=== PATIENT | female | born 1980 | race Caucasian/White ===

== ENCOUNTER 2018-07-28 12:45 | Inpatient (IN) | payer MEDICAID, OTHER ==
[~2018-07-28] VITALS: Ht 160 cm; Wt 54.9 kg
[2018-07-28] MEDS ORDERED: ONDANSETRON 4 MG TAB.RAPDIS ONE (13:29)
[2018-07-28] MEDS ORDERED: ACETAMINOPHEN ES 500 MG TABLET ONE (13:29)
[2018-07-28] MEDS ORDERED: ONDANSETRON HCL/PF 4 MG/2 ML VIAL IV ONE (13:30)
[2018-07-28] MEDS ORDERED: IV NS 0.9% 1,000 ML BAG IV ONE (13:30)
[2018-07-28] MEDS ORDERED: ACETAMINOPHEN ES 500 MG TABLET PO ONE (13:30)
--- NOTE | 2018-07-28 13:30 | NUR ---
BB FAMILY FOR FEVER NOTED TODAY. 1ST CHEMO LAST WEEK FOR BREAST CA. 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 SEEN BY MD FOR EVAL. PT AAOX4. SAFETY AND COMFORT MEASURES PROVIDED. WILL MONITOR.
--- NOTE | 2018-07-28 13:50 | NUR ---
IV ACCESS STARTED. MEDICATED ORDERED.
[2018-07-28 13:59] LABS: CALCIUM, SERUM 9.2 mg/dL (8.5-10.1); CARBON DIOXIDE 23 mmol/L (21-32); CHLORIDE 102 mmol/L (98-107); CREATININE 0.8 mg/dL (0.6-1.3); GLUCOSE 125 mg/dL (74-106); SODIUM SERUM 134 mmol/L (136-145); UREA NITROGEN, BLOOD 9 mg/dL (7-18)
--- NOTE | 2018-07-28 14:00 | NUR ---
CALLED LAB FOR FLU SWAB THEY SAID THEY WILL BRING IT.
[2018-07-28 14:03] LABS: INR 0.99 (0.85-1.15)
[2018-07-28 14:10] LABS: ALANINE AMINOTRANSFERASE 23 U/L (12-78); ALBUMIN 3.7 g/dL (3.4-5.0); ALKALINE PHOSPHATASE 52 U/L (46-116); ASPARTATE AMINOTRANSFERASE 16 U/L (15-37); BILIRUBIN,DIRECT 0.2 mg/dL (0.0-0.2); BILIRUBIN,TOTAL 0.5 mg/dL (0.2-1.0); EOSINOPHILS % (AUTO) 0.9 % (0.0-6.0); HEMATOCRIT 41 % (33-45); HEMOGLOBIN 13.8 g/dL (11.5-14.8); LYMPHOCYTES # (AUTO) 0.1 /CMM (0.8-4.8); LYMPHOCYTES % (AUTO) 25.4 % (20.0-44.0); MEAN CORPUSCULAR HEMOGLOBIN 29 PG (26.0-33.0); MEAN CORPUSCULAR HGB CONC 34 g/dl (31.0-36.0); MEAN CORPUSCULAR VOLUME 87 fL (82-100); MONOCYTES # (AUTO) 0.1 /CMM (0.1-1.30); MONOCYTES % (AUTO) 27.5 % (2.0-12.0); NEUTROPHILS # (AUTO) 0.2 /CMM (1.8-8.9); NEUTROPHILS % (AUTO) 46.2 % (43.0-81.0); PLATELET COUNT (AUTO) 149 /CMM (150-450); RDW COEFFICIENT OF VARIATION 12.8 (11.5-15.0); RED BLOOD CELL COUNT(AUTO) 4.72 MIL/uL (4.0-5.2); TOTAL PROTEIN, SERUM 7.3 g/dL (6.4-8.2); TROPONIN I < 0.017 ng/mL (0.00-0.056)
[2018-07-28 14:14] LABS: WHITE BLOOD COUNT (AUTO) 0.3 K/uL (4.3-11.0)
--- NOTE | 2018-07-28 14:20 | NUR ---
NOTIFIED CHET FROM LAB FOR FLU SWABS.
[2018-07-28] MEDS ORDERED: CEFEPIME 1 GM in IV D5W 50 ML IV ONE (14:30)
[2018-07-28] MEDS ORDERED: FILGRASTIM (300 MCG) 300 MCG/ML VIAL SQ STA (14:32)
--- NOTE | 2018-07-28 14:34 | NUR ---
PAGED EPIC FOR PANEL
[2018-07-28] MEDS ORDERED: ONDA4TAB8 PO (15:15)
[2018-07-28] MEDS ORDERED: TBO-FILGRASTIM 300 MCG/0.5 ML SYRINGE SQ ONE (15:30)
[2018-07-28 16:16] LABS: BILIRUBIN,URINE Negative (NEGATIVE); BLOOD, URINE Negative Ery/uL (NEGATIVE); COLOR,URINE Yellow (YELLOW); KETONES,URINE 40 (NEGATIVE); LEUKOCYTE ESTERASE ,URINE Small (NEGATIVE); NITRITE, URINE Negative (NEGATIVE); PH,URINE 5.5 (5.0-8.0); PROTEIN,URINE 30 mg/dl (NEGATIVE); UGLUCOSE Negative (NEGATIVE); UROBILINOGEN,URINE 0.2 EU/dL (0.2)
[2018-07-28 16:17] LABS: APPEARANCE,URINE SLIGHTLY HAZY (CLEAR)
[2018-07-28 16:22] LABS: BACTERIA,URINE Few /HPF (None Seen); RBC,URINE 0-2 /HPF (0-2); SQUAMOUS EPITHELIAL CELL,UR Many /HPF (None Seen)
[2018-07-28] MEDS ORDERED: MAG HYDROX/AL HYDROX/SIMETH 30 ML UDC PO PRN (16:30)
[2018-07-28] MEDS ORDERED: Z GUARD REMEDY 2 OZ OINT TP PRN (16:30)
[2018-07-28] MEDS ORDERED: MAGNESIUM HYDROXIDE 30 ML UDC PO PRN (16:30)
[2018-07-28] MEDS ORDERED: HYDROCODONE/APAP 5/325MG 1 EACH TABLET PO PRN (16:30)
--- NOTE | 2018-07-28 16:30 | NUR ---
REPORT GIVEN TO REBECA COTTER FOR TELE.
[2018-07-28] MEDS ORDERED: NYSTATIN (PYXIS) 500,000 UNIT/5 ML ORAL.SUSP PO SCH (17:00)
[2018-07-28 17:15] VITALS: BP 103/53
--- NOTE | 2018-07-28 17:15 | NUR ---
MS OIL SPRAYING MACHINE OPERATOR NOTES: PT ADMITTED FROM ER VIA WHEELCHAIR WITH A DIAGNOSIS OF NEUTROPENIC FEVER. PT IS ALERT, ORIENTED X4. ABLE TO MAKE NEEDS KNOWN. PT IS AMBULATORY. NO APPARENT DISTRESS NOTED. DENIES PAIN AND DISCOMFORT AT THIS TIME. PT ON ROOM AIR, SATURATING WELL. VITAL SIGNS WNL. IV ON RIGHT ANTECUBITAL #20, INTACT AND PATENT, FLUSHING WELL. PERTINENT ASSESSMENTS DONE. PT HAS A SCAB ON HER LEFT FOREARM, PICTURE TAKEN AND PLACED ON CHART. BELONGINGS LIST SIGNED BY PT. WILL CONTINUE TO MONITOR PT.
[2018-07-28] MEDS: IV NS 0.9% 1,000 ML IV PRN (17:18)
[2018-07-28] MEDS ORDERED: FEE PK DOSING 1 MIN EA MC ONE (18:16)
[2018-07-28] MEDS: PIPERACILLIN /TAZOBACTAM 3.375 G in IV D5W 50 ML IV SCH ×2 (18:31→23:28)
--- NOTE | 2018-07-28 19:00 | NUR ---
MS RN NOTES: PT HAD 3 EPISODES OF LOOSE WATERY STOOL, STOOL COLLECTED AND SENT TO LAB.
--- NOTE | 2018-07-28 19:36 | NUR ---
MS RN NOTES: PT LYING ON BED ALERT AND AWAKE. NO ACUTE DISTRESS NOTED. NO COMPLAINTS OF PAIN OR DISCOMFORT. BREATHING EVEN AND UNLABORED WITH NORMAL RESPIRATIONS. IV ON RIGHT ANTECUBITAL #20 INTACT AND PATENT WITH IVF NS RUNNING AT 100ML/HR, INFUSING WELL. KEPT CLEAN, DRY AND COMFORTABLE. CALL LIGHT PLACED WITHIN REACH. SAFETY AND FALL PRECAUTIONS OBSERVED AND MAINTAINED. WILL ENDORSE TO DEMENTIA PROGRAM DIRECTOR FOR CONTINUITY OF CARE.
[2018-07-28 20:00] VITALS: BP 100/59
[2018-07-28] MEDS: ACETAMINOPHEN 325 MG TABLET PO PRN (20:03)
[2018-07-28] MEDS: VANCOMYCIN 500 MG in IV D5W 100 ML IV SCH (20:12)
[2018-07-28] MEDS ORDERED: LOPERAMIDE HCL (2 MG CAP) 2 MG CAPSULE PO PRN (22:00)
[2018-07-28 22:29] LABS: OCCULT BLOOD STOOL POSITIVE (NEGATIVE)
[2018-07-28] MEDS ORDERED: LOPERAMIDE HCL UDC(2 MG/10 ML) 2 MG/10 ML UDC ONE (22:39)
[2018-07-28] MEDS: LOPERAMIDE HCL UDC(2 MG/10 ML) 2 MG/10 ML UDC PO PRN (23:08)
[2018-07-28] MEDS: ONDANSETRON HCL/PF 4 MG/2 ML VIAL IVP PRN (23:10)
[2018-07-28] MEDS: NYSTATIN (PYXIS) 500,000 UNIT/5 ML ORAL.SUSP PO SCH (23:28)
--- NOTE | 2018-07-29 01:01 | NUR ---
RN NOTE IMODIUM IS NOT AVAILABLE IN [facility], CALLED DR HERNANDEZ AND CHANGED IT TO SUSPENSION FORM PER MD ORDER PATIENT REQUESTED [facility]. FOUR TIMES A DAY DUE TO THROAT DISCOMFORT, CALLED DOCTOR HERNANDEZ AND CHANGED MEDICATION TO 4 TIMES A DAY PER MD ORDER
[2018-07-29 04:00] VITALS: BP 103/65
[2018-07-29] MEDS: VANCOMYCIN 500 MG in IV D5W 100 ML IV SCH ×2 (04:28→13:33)
[2018-07-29] MEDS: ACETAMINOPHEN 325 MG TABLET PO PRN ×2 (04:46→21:32)
[2018-07-29] MEDS: LOPERAMIDE HCL UDC(2 MG/10 ML) 2 MG/10 ML UDC PO PRN (04:46)
[2018-07-29] MEDS: PIPERACILLIN /TAZOBACTAM 3.375 G in IV D5W 50 ML IV SCH ×3 (05:10→19:16)
[2018-07-29] MEDS: ONDANSETRON HCL/PF 4 MG/2 ML VIAL IVP PRN ×3 (05:47→21:33)
[2018-07-29 06:21] LABS: BASOPHILS % (AUTO) 0.6 % (0.0-2.0); EOSINOPHILS % (AUTO) 0.5 % (0.0-6.0); HEMATOCRIT 39 % (33-45); HEMOGLOBIN 13.2 g/dL (11.5-14.8); LYMPHOCYTES # (AUTO) 0.2 /CMM (0.8-4.8); LYMPHOCYTES % (AUTO) 23.6 % (20.0-44.0); MEAN CORPUSCULAR HEMOGLOBIN 29 PG (26.0-33.0); MEAN CORPUSCULAR HGB CONC 34 g/dl (31.0-36.0); MEAN CORPUSCULAR VOLUME 87 fL (82-100); MONOCYTES # (AUTO) 0.3 /CMM (0.1-1.30); MONOCYTES % (AUTO) 37.3 % (2.0-12.0); NEUTROPHILS # (AUTO) 0.4 /CMM (1.8-8.9); PLATELET COUNT (AUTO) 164 /CMM (150-450); RDW COEFFICIENT OF VARIATION 12.7 (11.5-15.0); RED BLOOD CELL COUNT(AUTO) 4.54 MIL/uL (4.0-5.2)
[2018-07-29 06:27] LABS: CALCIUM, SERUM 8.3 mg/dL (8.5-10.1); MAGNESIUM 1.4 mg/dL (1.8-2.4); POTASSIUM 3.4 mmol/L (3.5-5.1)
--- NOTE | 2018-07-29 06:57 | NUR ---
RN NOTE PATIENT RESTED WELL AT NIGHT, NO PAIN OR FEVER AT THIS MOMENT, NO DISTRESS NOTED, IS BY BEDSIDE, ALL SAFETY MEASURES TAKEN, WILL ENDORSE TO AM SHIFT TO CONTINUE CARE
[2018-07-29 07:10] LABS: THYROID STIMULATING HORMONE 0.674 uIU/mL (0.358-3.74)
[2018-07-29 07:12] LABS: WHITE BLOOD COUNT (AUTO) 0.9 K/uL (4.3-11.0)
--- NOTE | 2018-07-29 07:30 | NUR ---
MIXER AND BLENDER INITIAL NOTES RECEIVED PATIENT IN BED AOX3, WITH WEAKNESS, ON NEUTROPENIC REVERSE ISOLATION, OBSERVED, NO DISTRESS, AMBULATORY, FAMILY AT BEDSIDE, IV R AC 20G NS @ 100 ML/HR, AFEBRILE AT THIS TIME, BED IN LOW AND LOCKED POSITION CALL LIGHT WITHIN REACH, WILL CONTINUE TO MONITOR.
[2018-07-29 08:00] VITALS: BP 99/65
[2018-07-29] MEDS: PANTOPRAZOLE 40 MG TABLET.DR PO SCH (08:31)
[2018-07-29] MEDS: NYSTATIN (PYXIS) 500,000 UNIT/5 ML ORAL.SUSP PO SCH ×4 (08:31→21:33)
[2018-07-29 09:43] LABS: BAND % (MANUAL) 1 % (0.0-5.0); LYMPHOCYTES % (MANUAL) 28 % (16-48); MONOCYTES % (MANUAL) 36 % (0-11.0); NEUTROPHILS % (MANUAL) 35 (42-76)
[2018-07-29] MEDS ORDERED: POTASSIUM CHLORIDE 20 MEQ TAB.PRT.SR PO SCH (10:00)
[2018-07-29] MEDS ORDERED: POTASSIUM CHLORIDE 20 MEQ TAB.PRT.SR PO ONE (10:15)
[2018-07-29] MEDS: Magnesium 1GM/D5W 100ML PREMIX 100 ML IV SCH ×3 (10:39→12:34)
[2018-07-29] MEDS: IV NS 0.9% 1,000 ML IV PRN (15:42)
[2018-07-29 16:00] VITALS: BP 119/52
[2018-07-29] MEDS ORDERED: TBO-FILGRASTIM 300 MCG/0.5 ML SYRINGE SQ SCH ×2 (18:00→18:30)
--- NOTE | 2018-07-29 19:00 | NUR ---
SENIOR INFRASTRUCTURE ENGINEER END NOTES PATIENT RESTING IN BED, FRIEND AT BEDSIDE, ALL NEEDS ADDRESSED, NO DISTRESS AT THIS TIME, WILL ENDORSE TO TRIMMING DEPARTMENT BLOCKER FOR CONTINUITY OF CARE.
[2018-07-29 20:00] VITALS: BP 111/67
--- NOTE | 2018-07-29 20:40 | NUR ---
RN OPENING NOTES RECEIVED REPORT FROM SANDRA COTTER. PATIENT A/A/O X4, ABLE TO MAKE NEEDS KNOWN. BREATHING EVEN & UNLABORED, TOLERATING ROOM AIR. DENIES ANY SOB OR DIFFICULTY BREATHING. RADIAL PULSES PRESENT & BOUNDING. DENIES ANY CARDIAC DISTRESS. RIGHT AC IV #20 & RIGHT CHEST WALL PERMACATH W/ DRESSING CDI & IVF NS INFUSING WELL @ 125 ML/HR. NO SIGNS OF INFILTRATION NOTED. DENIES ANY PAIN OR DISCOMFORT @ THIS TIME. AMBULATES W/ STEADY GAIT W/ BRP. INSTRUCTED TO USE CALL LIGHT FOR ANY OTHER ASSISTANCE. REVERSE & CONTACT ISOLATION PRECAUTIONS MAINTAINED. WILL CONTINUE TO MONITOR.
[2018-07-29] MEDS ORDERED: VANCOMYCIN 0.75 GM in IV D5W 250 ML IV SCH (21:00)
[2018-07-30] MEDS ORDERED: VANCOMYCIN 1 GM VIAL ONE (00:18)
[2018-07-30] MEDS: PIPERACILLIN /TAZOBACTAM 3.375 G in IV D5W 50 ML IV SCH ×5 (01:13→23:47)
[2018-07-30 04:00] VITALS: BP 102/70
[2018-07-30] MEDS: IV NS 0.9% 1,000 ML IV PRN ×2 (05:22→17:39)
[2018-07-30 06:34] LABS: BASOPHILS % (AUTO) 0.3 % (0.0-2.0); EOSINOPHILS % (AUTO) 0.2 % (0.0-6.0); HEMATOCRIT 38 % (33-45); HEMOGLOBIN 12.9 g/dL (11.5-14.8); LYMPHOCYTES # (AUTO) 0.6 /CMM (0.8-4.8); LYMPHOCYTES % (AUTO) 17.2 % (20.0-44.0); MEAN CORPUSCULAR HEMOGLOBIN 29 PG (26.0-33.0); MEAN CORPUSCULAR HGB CONC 34 g/dl (31.0-36.0); MEAN CORPUSCULAR VOLUME 87 fL (82-100); MONOCYTES # (AUTO) 0.9 /CMM (0.1-1.30); MONOCYTES % (AUTO) 24.8 % (2.0-12.0); NEUTROPHILS # (AUTO) 2.1 /CMM (1.8-8.9); NEUTROPHILS % (AUTO) 57.5 % (43.0-81.0); PLATELET COUNT (AUTO) 191 /CMM (150-450); RDW COEFFICIENT OF VARIATION 12.9 (11.5-15.0); WHITE BLOOD COUNT (AUTO) 3.6 K/uL (4.3-11.0)
[2018-07-30 06:47] LABS: CALCIUM, SERUM 8.6 mg/dL (8.5-10.1); CREATININE 0.9 mg/dL (0.6-1.3)
[2018-07-30 08:00] VITALS: BP 101/62
[2018-07-30] MEDS: PANTOPRAZOLE 40 MG TABLET.DR PO SCH (08:20)
[2018-07-30] MEDS: NYSTATIN (PYXIS) 500,000 UNIT/5 ML ORAL.SUSP PO SCH ×4 (08:20→21:04)
[2018-07-30] MEDS: VANCOMYCIN 0.75 GM in IV D5W 250 ML IV SCH ×2 (08:22→15:52)
[2018-07-30 09:16] LABS: BAND % (MANUAL) 7 % (0.0-5.0); LYMPHOCYTES % (MANUAL) 26 % (16-48); MONOCYTES % (MANUAL) 29 % (0-11.0); NEUTROPHILS % (MANUAL) 38 (42-76)
[2018-07-30] MEDS ORDERED: LOPERAMIDE HCL (2 MG CAP) 2 MG CAPSULE PO PRN (10:00)
[2018-07-30] MEDS: LOPERAMIDE HCL (2 MG CAP) 2 MG CAPSULE PO PRN (11:46)
[2018-07-30] MEDS ORDERED: POTASSIUM CHLORIDE 20 MEQ TAB.PRT.SR PO ONE (12:00)
[2018-07-30] MEDS: ONDANSETRON HCL/PF 4 MG/2 ML VIAL IVP PRN (12:15)
[2018-07-30 16:00] VITALS: BP 98/61
--- NOTE | 2018-07-30 19:47 | NUR ---
RN OPENING NOTES RECEIVED REPORT FROM MARIA ELENA Marie RN. PATIENT A/A/O X4, ABLE TO MAKE NEEDS KNOWN. BREATHING EVEN & UNLABORED, TOLERATING ROOM AIR. DENIES ANY SOB OR DIFFICULTY BREATHING. RADIAL PULSES PRESENT & BOUNDING. DENIES ANY CARDIAC DISTRESS. RIGHT AC IV #20 & RIGHT CHEST WALL PORTACATH W/ DRESSING CDI & IVF NS INFUSING WELL @ 125 ML/HR. NO SIGNS OF INFILTRATION NOTED. DENIES ANY PAIN OR DISCOMFORT @ THIS TIME. AMBULATES W/ STEADY GAIT W/ BRP. INSTRUCTED TO USE CALL LIGHT FOR ANY OTHER ASSISTANCE. REVERSE & CONTACT ISOLATION PRECAUTIONS MAINTAINED. WILL CONTINUE TO MONITOR.
[2018-07-30 20:00] VITALS: BP_SYST 101; BP_SYST 125; BP_DIAS 57; BP_DIAS 68
[2018-07-31] MEDS: VANCOMYCIN 0.75 GM in IV D5W 250 ML IV SCH ×4 (01:29→23:14)
[2018-07-31 04:00] VITALS: BP 95/58
[2018-07-31] MEDS: IV NS 0.9% 1,000 ML IV PRN (04:58)
[2018-07-31] MEDS: PIPERACILLIN /TAZOBACTAM 3.375 G in IV D5W 50 ML IV SCH ×3 (05:00→18:07)
[2018-07-31] MEDS: LOPERAMIDE HCL (2 MG CAP) 2 MG CAPSULE PO PRN (05:07)
[2018-07-31 07:28] LABS: BASOPHILS % (AUTO) 0.2 % (0.0-2.0); EOSINOPHILS % (AUTO) 0.2 % (0.0-6.0); HEMATOCRIT 32 % (33-45); HEMOGLOBIN 10.6 g/dL (11.5-14.8); LYMPHOCYTES # (AUTO) 0.8 /CMM (0.8-4.8); LYMPHOCYTES % (AUTO) 13.8 % (20.0-44.0); MEAN CORPUSCULAR HEMOGLOBIN 29 PG (26.0-33.0); MEAN CORPUSCULAR HGB CONC 33 g/dl (31.0-36.0); MEAN CORPUSCULAR VOLUME 87 fL (82-100); MONOCYTES # (AUTO) 0.7 /CMM (0.1-1.30); MONOCYTES % (AUTO) 10.9 % (2.0-12.0); NEUTROPHILS # (AUTO) 4.5 /CMM (1.8-8.9); NEUTROPHILS % (AUTO) 74.9 % (43.0-81.0); PLATELET COUNT (AUTO) 148 /CMM (150-450); RDW COEFFICIENT OF VARIATION 13.3 (11.5-15.0); RED BLOOD CELL COUNT(AUTO) 3.66 MIL/uL (4.0-5.2)
--- NOTE | 2018-07-31 07:30 | NUR ---
RN NOTES PATIENT A/OX4, NO DISTRESS NOTED, AT BEDSIDE, DENIES PAIN OR DISCOMFORT AT THIS TIME, IVF INFUSING AND TOLERATING WELL, NEEDS ATTENDED, CALL LIGHT WITHIN REACH, WILL CONTINUE TO MONITOR.
[2018-07-31 07:41] LABS: CALCIUM, SERUM 7.9 mg/dL (8.5-10.1); CREATININE 0.9 mg/dL (0.6-1.3); MAGNESIUM 1.7 mg/dL (1.8-2.4); PHOSPHORUS 1.7 mg/dL (2.5-4.9); POTASSIUM 3.3 mmol/L (3.5-5.1)
[2018-07-31] MEDS: NYSTATIN (PYXIS) 500,000 UNIT/5 ML ORAL.SUSP PO SCH ×4 (08:38→21:12)
[2018-07-31] MEDS: PANTOPRAZOLE 40 MG TABLET.DR PO SCH (08:38)
[2018-07-31 09:00] VITALS: BP 91/55
[2018-07-31] MEDS ORDERED: POTASSIUM CHLORIDE 20 MEQ TAB.PRT.SR PO SCH (11:00)
[2018-07-31] MEDS: Magnesium 1GM/D5W 100ML PREMIX 100 ML IV SCH ×2 (11:25→12:25)
[2018-07-31 16:00] VITALS: BP 99/66
[2018-07-31] MEDS ORDERED: K PHOS NEUTRAL 250 MG TABLET PO ONE (16:00)
[2018-07-31 20:00] VITALS: BP 103/66
--- NOTE | 2018-07-31 22:35 | NUR ---
MS RN NOTES RECIEVED PTS IN BED A/OX4 ON R/A AMBULATORY , V/S STABLE AFEBRILE .NO SOB NO DISTRESS NOTED , AT BEDSIDE UPDATED WITH PTS CURRENT CONDITION ,DUE MEDS GIVEN ORDERED.CONTINUE WITH IVF OF NS AT 125 CC/HR INFUSING WELL.ALL NEEDS ATTENDED TOO CALL L WITHIN REACH KEPT PTS CLEAN DRY AND COMFORTABLE WILL CONTINUE TO MONITOR PTS.
[2018-08-01] MEDS: PIPERACILLIN /TAZOBACTAM 3.375 G in IV D5W 50 ML IV SCH ×3 (00:11→12:25)
[2018-08-01] MEDS: IV NS 0.9% 1,000 ML IV PRN ×2 (00:30→12:23)
[2018-08-01 04:00] VITALS: BP 100/59
[2018-08-01 06:39] LABS: BASOPHILS % (AUTO) 0.2 % (0.0-2.0); EOSINOPHILS % (AUTO) 0.2 % (0.0-6.0); HEMATOCRIT 32 % (33-45); HEMOGLOBIN 10.3 g/dL (11.5-14.8); LYMPHOCYTES % (AUTO) 15.8 % (20.0-44.0); MEAN CORPUSCULAR HEMOGLOBIN 29 PG (26.0-33.0); MEAN CORPUSCULAR HGB CONC 33 g/dl (31.0-36.0); MEAN CORPUSCULAR VOLUME 88 fL (82-100); MONOCYTES # (AUTO) 0.6 /CMM (0.1-1.30); MONOCYTES % (AUTO) 9.6 % (2.0-12.0); NEUTROPHILS # (AUTO) 4.8 /CMM (1.8-8.9); NEUTROPHILS % (AUTO) 74.2 % (43.0-81.0); PLATELET COUNT (AUTO) 151 /CMM (150-450); RDW COEFFICIENT OF VARIATION 13.5 (11.5-15.0); RED BLOOD CELL COUNT(AUTO) 3.61 MIL/uL (4.0-5.2); WHITE BLOOD COUNT (AUTO) 6.4 K/uL (4.3-11.0)
[2018-08-01 06:58] LABS: CALCIUM, SERUM 7.9 mg/dL (8.5-10.1); CREATININE 0.8 mg/dL (0.6-1.3); MAGNESIUM 1.9 mg/dL (1.8-2.4); PHOSPHORUS 2.5 mg/dL (2.5-4.9); POTASSIUM 2.9 mmol/L (3.5-5.1)
--- NOTE | 2018-08-01 07:20 | NUR ---
RN OPENING NOTES RECEIVED REPORT FROM PM RN. PATIENT A/A/O X4, ABLE TO MAKE NEEDS KNOWN. BREATHING EVEN & UNLABORED, TOLERATING ROOM AIR. DENIES ANY SOB OR DIFFICULTY BREATHING. DENIES ANY CARDIAC DISTRESS. RIGHT AC IV #20 & RIGHT CHEST WALL ISATU CATH IVF NS INFUSING WELL @ 125 ML/HR. NO SIGNS OF INFILTRATION NOTED. DENIES ANY PAIN OR DISCOMFORT @ THIS TIME. AMBULATES W/ STEADY GAIT W/ BRP. INSTRUCTED TO USE CALL LIGHT FOR ANY OTHER ASSISTANCE. REVERSE & CONTACT ISOLATION PRECAUTIONS MAINTAINED. CALL LIGHT IN REACH.BED IS LOW AND IN LOCKED POSITION.SRX2.WILL CONTINUE TO MONITOR.
[2018-08-01] MEDS: PANTOPRAZOLE 40 MG TABLET.DR PO SCH (07:48)
[2018-08-01 08:00] VITALS: BP 102/62
[2018-08-01] MEDS: VANCOMYCIN 0.75 GM in IV D5W 250 ML IV SCH (08:19)
[2018-08-01] MEDS: NYSTATIN (PYXIS) 500,000 UNIT/5 ML ORAL.SUSP PO SCH ×2 (08:19→13:48)
[2018-08-01 09:14] LABS: BAND % (MANUAL) 5 % (0.0-5.0); LYMPHOCYTES % (MANUAL) 22 % (16-48); METAMYELOCYTES % 1 % (0-0); MONOCYTES % (MANUAL) 10 % (0-11.0); MYELOCYTES % 7 % (0-0); NEUTROPHILS % (MANUAL) 55 (42-76)
[2018-08-01] MEDS: POTASSIUM CHLORIDE 10 MEQ TABLET.SA PO SCH ×2 (10:57→13:48)
[2018-08-01] MEDS ORDERED: LOPE2CAP40 PO (15:26)
[2018-08-01] MEDS ORDERED: LEVO750T21 PO (15:26)
[2018-08-01] MEDS ORDERED: POTA20TA83 PO (15:29)
[2018-08-01 16:00] VITALS: BP 120/78
--- NOTE | 2018-08-01 16:00 | NUR ---
RN NOTES SEEN BY TAIWO TALBOT UPDATED PATIENT CONDITION.GOT NEW ORDER FOR D/C HOME.
--- NOTE | 2018-08-01 17:00 | NUR ---
DELIVERY MOTORCYCLE DRIVER NOTE PATIENT DISCARDED TO HOME IN STABLE CONDITION.NO SOB NO DISTRESS NOTED.EXIT CARE DONE.ALL DISCHARGE INSTRUCTION GIVEN TO THE PATIENT WITH DISCHARGE PACKET. WAS AT BEDSIDE.VERBALIZE UNDERSTANDING.EXPLAINED ABOUT F/U APPOINTMENTS AND GIVEN KURTIS GARCIA INFORMATION FOR F/U.PATIENT IS AXOX4.LEFT WITH ORALIA.TOOK ALL BELONGINGS.
[2018-08-02] MEDS ORDERED: POTASSIUM CHLORIDE 20 MEQ TAB.PRT.SR PO SCH (09:00)
== END 2018-08-01 17:10 | disposition home or self-care (01) | DRG 463 ==
LOC: ER 12:47 → TELE1 16:47 → MEDSG1 17:01
PROVIDERS: ADMIT Registered Nurse; ATTEND Registered Nurse
DX: N39.0 Urinary tract infection, site not specified (principal); D89.9 Disorder involving the immune mechanism, unspecified; B37.0 Candidal stomatitis; D70.9 Neutropenia, unspecified; D64.81 Anemia due to antineoplastic chemotherapy; E83.42 Hypomagnesemia; B34.9 Viral infection, unspecified; E87.1 Hypo-osmolality and hyponatremia; C50.912 Malignant neoplasm of unspecified site of left female breast; B96.89 Other specified bacterial agents as the cause of diseases classified elsewhere; R11.10 Vomiting, unspecified; R19.7 Diarrhea, unspecified; T45.1X5A Adverse effect of antineoplastic and immunosuppressive drugs, initial encounter; Y92.009 Unspecified place in unspecified non-institutional (private) residence as the place of occurrence of the external cause; Z17.1 Estrogen receptor negative status [ER-]; J02.9 Acute pharyngitis, unspecified; E87.6 Hypokalemia; Z82.49 Family history of ischemic heart disease and other diseases of the circulatory system; Z80.3 Family history of malignant neoplasm of breast
CPT/HCPCS: 36415; 71045-TC; 80048-TC; 80076-TC; 80202-TC; 81000-TC; 82272-TC; 83605-TC; 83735-TC; 84100-TC; 84443-TC; 84484-TC; 84703-TC; 85025-TC; 85730-TC; 87040-TC; 87045-TC; 87081-TC; 87086-TC; 89055; A4606; J0692; J1442; J2405; J2543; J3370; J3475; J7030; J7060; Q0162; Z7610